=== PATIENT | female | born 1970 | race Caucasian/White ===

== ENCOUNTER 2017-05-21 09:00 | Outpatient (RCR) | payer BC | END 2017-06-09 | disposition home or self-care (01) | LOC: PTY 09:00 | DX: M54.5 Low back pain (principal) ==

== ENCOUNTER 2017-12-17 08:15 | Outpatient (RCR) | payer BC | END 2018-01-09 | disposition home or self-care (01) | LOC: PTY 08:15 | DX: M51.26 Other intervertebral disc displacement, lumbar region (principal) ==